=== PATIENT | male | born 1990 | race Caucasian/White ===

== ENCOUNTER 2019-11-05 16:51 | Emergency (ER) | payer SELFPAY ==
--- NOTE | 2019-11-05 18:39 | EDPHYS ---
Physician Documentation [facility] Name: David Pires Age: 29 yrs Sex: Male : 1990 Arrival Date: 11/05/2019 Time: 16:53 Bed 15 Private MD: ED Physician Celestino Umanzor HPI: 11/05 18:10 This 29 yrs old Male presents to ER via Ambulatory with complaints of Ankle snw Injury. 18:10 The patient presents with an injury, pain, that is acute. The complaints affect the snw right ankle. Onset: The symptoms/episode began/occurred suddenly, 3 day(s) ago, and became persistent. Context: [place] resulted from the patient falling, while jumping, The mechanism of injury involved axial compression of the affected ankle. The patient is unable to bear weight. can ambulate using crutches. Associated signs and symptoms: The patient has no apparent associated signs or symptoms. Severity of symptoms: At their worst the symptoms were moderate. It is unknown whether or not the patient has had similar symptoms in the past. The patient has not recently seen a physician. Historical: - Allergies: 17:07 No Known Allergies; mg2 - Home Meds: 17:07 None [Active]; mg2 - PMHx: 17:07 PCV; Hypertension; mg2 - PSHx: 17:07 Ear Tubes; mg2 - Immunization history:: Flu vaccine is not up to date. - Social history:: Smoking status: Patient reports the use of cigarette tobacco products, smokes one-half pack cigarettes per day, Patient uses alcohol, on a daily basis. smoke weed. - Ebola Screening: : No symptoms or risks identified at this time. ROS: 18:09 Constitutional: Negative for fever, chills, and weight loss, Eyes: Negative for injury, snw pain, redness, and discharge, ENT: Negative for injury, pain, and discharge, Neck: Negative for injury, pain, and swelling, Cardiovascular: Negative for chest pain, palpitations, and edema, Respiratory: Negative for shortness of breath, cough, wheezing, and pleuritic chest pain, Abdomen/GI: Negative for abdominal pain, nausea, vomiting, diarrhea, and constipation, Back: Negative for injury and pain, : Negative for injury, bleeding, discharge, and swelling, Skin: Negative for injury, rash, and discoloration, Neuro: Negative for headache, weakness, numbness, tingling, and seizure. 18:09 MS/extremity: Positive for injury or acute deformity, contusion, decreased range of motion, ecchymosis, pain, of the right foot and right ankle. Exam: 18:08 Constitutional: This is a well developed, well nourished patient who is awake, alert, snw and in no acute distress. Head/Face: Normocephalic, atraumatic. Eyes: Pupils equal round and reactive to light, extra-ocular motions intact. Lids and lashes normal. Conjunctiva and sclera are non-icteric and not injected. Cornea within normal limits. Periorbital areas with no swelling, redness, or edema. ENT: Nares patent. No nasal discharge, no septal abnormalities noted. Tympanic membranes are normal and external auditory canals are clear. Oropharynx with no redness, swelling, or masses, exudates, or evidence of obstruction, uvula midline. Mucous membranes moist. Neck: Trachea midline, no thyromegaly or masses palpated, and no cervical lymphadenopathy. Supple, full range of motion without nuchal rigidity, or vertebral point tenderness. No Meningismus. Chest/axilla: Normal chest wall appearance and motion. Nontender with no deformity. No lesions are appreciated. Cardiovascular: Regular rate and rhythm with a normal S1 and S2. No gallops, murmurs, or rubs. Normal PMI, no JVD. No pulse deficits. Respiratory: Lungs have equal breath sounds bilaterally, clear to auscultation and percussion. No rales, rhonchi or wheezes noted. No increased work of breathing, no retractions or nasal flaring. Abdomen/GI: Soft, non-tender, with normal bowel sounds. No distension or tympany. No guarding or rebound. No evidence of tenderness throughout. Back: No spinal tenderness. No costovertebral tenderness. Full range of motion. Skin: Warm, dry with normal turgor. Normal color with no rashes, no lesions, and no evidence of cellulitis. Neuro: Awake and alert, GCS 15, oriented to person, place, time, and situation. Cranial nerves II-XII grossly intact. Motor strength 5/5 in all extremities. Sensory grossly intact. Cerebellar exam normal. Normal gait. Psych: Awake, alert, with orientation to person, place and time. Behavior, mood, and affect are within normal limits. 18:08 Musculoskeletal/extremity: Extremities: grossly normal except: noted in the right lateral malleolus, right medial malleolus and dorsum of right foot: ecchymosis, pain, swelling, tenderness, ROM: limited active range of motion due to pain, Circulation is intact in all extremities. Sensation intact. Vital Signs: 17:05 Pulse 102; Resp 18; Temp 98.6; Pulse Ox 100% on R/A; Weight 90.72 kg; Height 5 ft. 9 mg2 in. (175.26 cm); 17:07 BP 130 / 96; mg2 18:32 BP 126 / 86; Pulse 99; Resp 17 S; Pulse Ox 100% ; ca1 17:05 Body Mass Index 29.53 (90.72 kg, 175.26 cm) mg2 MDM: 17:44 Patient medically screened. snw 18:41 Data reviewed: vital signs, nurses notes. Data interpreted: Pulse oximetry: on room air snw is 100 %. Interpretation: normal. Counseling: I had a detailed discussion with the patient and/or guardian regarding: the historical points, exam findings, and any diagnostic results supporting the discharge/admit diagnosis, radiology results, the need for outpatient follow up, to return to the emergency department if symptoms worsen or persist or if there are any questions or concerns that arise at home. Special discussion: I have referred the patient to see his PCP for further evaluation of high blood pressure. Based on the history and exam findings, there is no indication for further emergent testing or inpatient evaluation. I discussed with the patient/guardian the need to see the orthopedic surgeon for further evaluation of the symptoms. I discussed with the patient/guardian the need to see the primary care provider for further evaluation of the symptoms. 11/05 17:19 Order name: Foot Right 3 View XRAY; Complete Time: 18:44 snw 11/05 17:19 Order name: Lumbar Spine (3 Views) XRAY; Complete Time: 18:40 snw 11/05 17:34 Order name: Ankle Right 3 View XRAY; Complete Time: 18:44 dh3 11/05 18:34 Order name: Walking boot; Complete Time: 18:59 snw Administered Medications: No medications were administered Disposition: 11/06 07:59 Co-signature as Attending Physician, Celestino Umanzor MD I agree with the assessment and tw4 plan of care. Disposition: 11/05/19 18:38 Discharged to Home. Impression: Fall (on) (from) unspecified stairs and steps, Pain in right lower leg, Sprain of ankle. - Condition is Stable. - Discharge Instructions: Ankle Sprain, RICE for Routine Care of Injuries, Ankle Pain, Cryotherapy, Walking Boot. - Prescriptions for Diclofenac Sodium 75 mg Oral Tablet Sustained Release - take 1 tablet by ORAL route 2 times per day; 30 tablet. orphenadrine citrate 100 mg Oral Tablet Sustained Release - take 1 tablet by ORAL route 2 times per day As needed; 20 tablet. - Work release form, Medication Reconciliation Form, Thank You Letter, Antibiotic Education, Prescription Opioid Use form. - Follow up: Emergency Department; When: As needed; Reason: Worsening of condition. Follow up: Private Physician; When: 2 - 3 days; Reason: Recheck today's complaints, Continuance of care, Re-evaluation by your physician. Signatures: Dispatcher [employer] EDMS Arianne Macias, LORENA-C ORGAN TEACHER-Csnw Celestino Umanzor MD MD tw4 Sahwn Sarmiento RN RN mg2 Litzy Saez RN RN ca1 Corrections: (The following items were deleted from the chart) 11/05 18:38 18:38 11/05/2019 18:38 Discharged to Home. Impression: Fall (on) (from) unspecified snw stairs and steps; Pain in right lower leg. Condition is Stable. Forms are Medication Reconciliation Form, Thank You Letter, Antibiotic Education, Prescription Opioid Use. Follow up: Emergency Department; When: As needed; Reason: Worsening of condition. Follow up: Private Physician; When: 2 - 3 days; Reason: Recheck today's complaints, Continuance of care, Re-evaluation by your physician. snw 19:03 18:38 11/05/2019 18:38 Discharged to Home. Impression: Fall (on) (from) unspecified ca1 stairs and steps; Pain in right lower leg; Sprain of ankle. Condition is Stable. Forms are Medication Reconciliation Form, Thank You Letter, Antibiotic Education, Prescription Opioid Use. Follow up: Emergency Department; When: As needed; Reason: Worsening of condition. Follow up: Private Physician; When: 2 - 3 days; Reason: Recheck today's complaints, Continuance of care, Re-evaluation by your physician. snw
--- NOTE | 2019-11-05 18:39 | RAD REPORT ---
EXAM DESCRIPTION: RAD - Lumbar Spine 3 Views - 11/05/2019 6:16 pm CLINICAL HISTORY: Back pain FINDINGS: No fracture or dislocation seen
--- NOTE | 2019-11-05 18:39 | ER ---
Nurse's Notes [facility] Name: David Pires Age: 29 yrs Sex: Male : 1990 Arrival Date: 11/05/2019 Time: 16:53 Bed 15 Private MD: Diagnosis: Fall (on) (from) unspecified stairs and steps;Pain in right lower leg;Sprain of ankle Presentation: 11/05 17:02 Presenting complaint: Patient states: [place], i fell from mg2 top floor to the second floor like 6-8 feet high and landed on my right foot. i was drunk that time. Transition of care: patient was not received from another setting of care. Onset of symptoms was November 03, 2019. Risk Assessment: Do you want to hurt yourself or someone else? Patient reports no desire to harm self or others. Initial Sepsis Screen: Does the patient meet any 2 criteria? No. Patient's initial sepsis screen is negative. Does the patient have a suspected source of infection? No. Patient's initial sepsis screen is negative. Care prior to arrival: 17:02 Method Of Arrival: Ambulatory mg2 17:02 Acuity: GUIDO 4 mg2 Historical: - Allergies: 17:07 No Known Allergies; mg2 - Home Meds: 17:07 None [Active]; mg2 - PMHx: 17:07 PCV; Hypertension; mg2 - PSHx: 17:07 Ear Tubes; mg2 - Immunization history:: Flu vaccine is not up to date. - Social history:: Smoking status: Patient reports the use of cigarette tobacco products, smokes one-half pack cigarettes per day, Patient uses alcohol, on a daily basis. smoke weed. - Ebola Screening: : No symptoms or risks identified at this time. Screenin:38 Abuse screen: Denies threats or abuse. Denies injuries from another. Nutritional ca1 screening: No deficits noted. Tuberculosis screening: No symptoms or risk factors identified. Fall Risk Ambulatory Aid- Crutches/Cane/Walker (15 pts). Gait- Impaired (20 pts.). Assessment: 17:38 General: Appears in no apparent distress. comfortable, Behavior is calm, cooperative, ca1 appropriate for age. Pain: Complains of pain in right ankle Pain currently is 6 out of 10 on a pain scale. Pain began 2 hours ago. Aggravated by weight bearing. Neuro: Level of Consciousness is awake, alert, obeys commands, Oriented to person, place, time, situation, Appropriate for age. Derm: Skin is intact, is healthy with good turgor, Skin is pink, warm \T\ dry. Musculoskeletal: Circulation, motion, and sensation intact. Capillary refill < 3 seconds, Range of motion: limited in right ankle Swelling present in right first toe, right second toe, right third toe, right fourth toe and right fifth toe. 18:15 Reassessment: Patient appears in no apparent distress at this time. Patient is alert, ca1 oriented x 3, equal unlabored respirations, skin warm/dry/pink. 19:01 Reassessment: Patient appears in no apparent distress at this time. Patient is alert, ca1 oriented x 3, equal unlabored respirations, skin warm/dry/pink. Vital Signs: 17:05 Pulse 102; Resp 18; Temp 98.6; Pulse Ox 100% on R/A; Weight 90.72 kg; Height 5 ft. 9 mg2 in. (175.26 cm); 17:07 BP 130 / 96; mg2 18:32 BP 126 / 86; Pulse 99; Resp 17 S; Pulse Ox 100% ; ca1 17:05 Body Mass Index 29.53 (90.72 kg, 175.26 cm) mg2 ED Course: 16:53 Patient arrived in ED. ag5 17:00 Arianne Macias FNP-C is [facility]. snw 17:00 Celestino Umanzor MD is Attending Physician. snw 17:05 Triage completed. mg2 17:06 Arm band placed on. mg2 17:37 Litzy Saez, SHANTE is Primary Nurse. ca1 17:38 Patient has correct armband on for positive identification. Bed in low position. Call ca1 light in reach. Side rails up X 1. Pulse ox on. NIBP on. 17:38 No provider procedures requiring assistance completed. Patient did not have IV access ca1 during this emergency room visit. 18:16 Foot Right 3 View XRAY In Process Unspecified. EDMS 18:16 Lumbar Spine (3 Views) XRAY In Process Unspecified. EDMS 18:16 Ankle Right 3 View XRAY In Process Unspecified. EDMS Administered Medications: No medications were administered Outcome: 18:38 Discharge ordered by . snw 19:01 Discharged to home via wheelchair, with crutches, with significant other. ca1 19:01 Condition: stable 19:01 Discharge instructions given to patient, Instructed on discharge instructions, follow up and referral plans. medication usage, Demonstrated understanding of instructions, follow-up care, medications, Prescriptions given X 2. 19:03 Patient left the ED. ca1 Signatures: Dispatcher [employer] EDMS Arianne Macias, DEPUTY EDITOR IN CHIEF-C DEPUTY EDITOR IN CHIEF-Csnw Shawn Sarmiento RN RN mg2 Litzy Saez RN RN ca1 Cruz Bales ag5 Corrections: (The following items were deleted from the chart) 18:36 18:32 BP 135 / 89; Pulse 99bpm; Resp 17bpm; Spontaneous; Pulse Ox 100%; ca1 ca1
--- NOTE | 2019-11-05 18:40 | RAD REPORT ---
EXAM DESCRIPTION: RAD - Ankle Right 3 View - 11/05/2019 6:16 pm CLINICAL HISTORY: Right ankle pain status post fall FINDINGS: No fracture or dislocation is seen. Soft tissue swelling
--- NOTE | 2019-11-05 18:41 | RAD REPORT ---
EXAM DESCRIPTION: RAD - Foot Right 3 View - 11/05/2019 6:15 pm CLINICAL HISTORY: Right foot pain status post injury FINDINGS: No fracture or dislocation is seen
[2019-11-05 21:44] VITALS: TEMP 98.6; O2SAT 100
[2019-11-05 21:46] VITALS: BP 126/86
== END 2019-11-05 19:03 | disposition home or self-care (01) ==
LOC: ER 16:51
DX: S93.401A Sprain of unspecified ligament of right ankle, initial encounter (principal); W19.XXXA Unspecified fall, initial encounter; Y93.89 Activity, other specified; Y92.832 Beach as the place of occurrence of the external cause; I10 Essential (primary) hypertension; F17.210 Nicotine dependence, cigarettes, uncomplicated
CPT/HCPCS: 72100; 99283

== ENCOUNTER 2020-09-13 00:58 | Emergency (ER) | payer SELFPAY ==
[2020-09-13] MEDS ORDERED: LIDOCAINE 1% W/EPI 1:100,000 MDV 50 ML VIAL ONE (01:42)
[2020-09-13] MEDS ORDERED: CEPHALEXIN 250 MG CAP ONE (01:46)
--- NOTE | 2020-09-13 02:21 | ER ---
Nurse's Notes [facility] Name: David Pires Age: 30 yrs Sex: Male : 1990 Arrival Date: 09/13/2020 Time: 01: Bed 8 Private MD: Diagnosis: Hematoma of pinna, right ear-incised Presentation: 09/13 01:08 Chief complaint: Patient states: Swelling and pain to the ear, states unsure if any sg fever, reports ear feels hot, denies N/V/D at this time. Coronavirus screen: Client denies travel out of the [place] in the last 14 days. At this time, the client does not indicate any symptoms associated with coronavirus-19. Ebola Screen: Patient negative for fever greater than or equal to 101.5 degrees Fahrenheit, and additional compatible Ebola Virus Disease symptoms Patient denies exposure to infectious person. Patient denies travel to an Ebola-affected area in the 21 days before illness onset. No symptoms or risks identified at this time. Initial Sepsis Screen: Does the patient meet any 2 criteria? No. Patient's initial sepsis screen is negative. Does the patient have a suspected source of infection? Yes: Skin breakdown/wound. Risk Assessment: Do you want to hurt yourself or someone else? Patient reports no desire to harm self or others. Onset of symptoms was September 13, 2020. Care prior to arrival: None. Transition of care: patient was not received from another setting of care. 01:08 Acuity: GUIDO 4 sg 01:08 Method Of Arrival: Ambulatory sg Historical: - Allergies: 01:08 No Known Allergies; sg - PMHx: 01:08 Hypertension; PCV; sg - PSHx: 01:08 Ear Tubes; sg - Immunization history:: Adult Immunizations up to date. - Social history:: Smoking status: . - Family history:: not pertinent. Screenin:15 Abuse screen: Denies injuries from another. Nutritional screening: No deficits noted. jb4 Tuberculosis screening: No symptoms or risk factors identified. Fall Risk None identified. Assessment: 01:15 General: Appears in no apparent distress. comfortable, Behavior is calm, cooperative, jb4 appropriate for age. Pain: Complains of pain in right ear Pain does not radiate. Pain currently is 0 out of 10 on a pain scale. Neuro: Level of Consciousness is awake, alert, obeys commands, Oriented to person, place, time, situation. Cardiovascular: Patient's skin is warm and dry. Respiratory: Airway is patent Respiratory effort is even, unlabored, Respiratory pattern is regular, symmetrical. GI: No signs and/or symptoms were reported involving the gastrointestinal system. : No signs and/or symptoms were reported regarding the genitourinary system. EENT: Pinna w/ deformity noted on pinna of right ear. Derm: Skin is intact, Skin is pink, warm \T\ dry. Musculoskeletal: No signs and/or symptoms reported regarding the musculoskeletal system. 02:30 Reassessment: Patient appears in no apparent distress at this time. Patient and/or jb4 family updated on plan of care and expected duration. Pain level reassessed. Patient is alert, oriented x 3, equal unlabored respirations, skin warm/dry/pink. Vital Signs: 01:08 BP 136 / 77; Pulse 82; Resp 18; Pulse Ox 100% on R/A; sg 02:30 BP 122 / 84; Pulse 78; Resp 16; Temp 97.2(TE); Pulse Ox 99% on R/A; Pain 0/10; jb4 ED Course: 01:01 Patient arrived in ED. cf2 01:07 David Carbajal MD is Attending Physician. alonso 01:08 Arm band placed on. sg 01:10 Triage completed. sg 01:12 Pepe Heredia, RN is Primary Nurse. jb4 01:15 Patient has correct armband on for positive identification. Bed in low position. Call jb4 light in reach. Side rails up X 1. Pulse ox on. NIBP on. 02:00 Assist provider with I \T\ D: of an abscess on right Ear Set up I\T\D tray. Performed by ulises 4 David Carbajal MD Dressing with Vasoline Gauze. 02:20 Smita Chase MD is Referral Physician. alonso 03:08 Patient did not have IV access during this emergency room visit. jb4 Administered Medications: 01:53 Drug: KeFLEX 500 mg Route: PO; jb4 03:07 Follow up: Response: No adverse reaction jb4 02:00 Drug: Lidocaine-Epinephrine -1%: (1:100,000) 2 ml {Note: Administered by Dr. Carbajal.} jb4 Volume: 20 ml; Route: Infiltration; 02:15 Drug: Bactroban Ointment 2 % 1 application {Note: Administered by Dr. Carbajal.} Route: jb4 Topical; Site: affected area; 02:37 Drug: Tetanus-Diphtheria Toxoid Adult 0.5 ml {Drafter Structural: [employer]akoo. Exp: jb4 12/28/2021. Lot #: [id number]. } Route: IM; Site: right deltoid; 03:07 Follow up: Response: No adverse reaction jb4 02:37 Drug: Bactrim (160 mg-800 mg (DS) 1 tablet Route: PO; jb4 03:07 Follow up: Response: No adverse reaction jb4 Outcome: 02:20 Discharge ordered by . alonso 03:07 Discharged to home ambulatory, with significant other. jb4 03:07 Condition: stable 03:07 Discharge instructions given to patient, Instructed on discharge instructions, follow up and referral plans. medication usage, Demonstrated understanding of instructions, follow-up care, medications, Prescriptions given X 2. 03:08 Patient left the ED. sg Signatures: Brayden Gonzales RN David Eisenberg MD MD cha Bryson, James RN RN jb4 Viviana Stokes cf2 Corrections: (The following items were deleted from the chart) 03:08 02:20 Assist provider with I \T\ D: of an abscess on right Ear Set up I\T\D tray. Performed ulises 4 by David Carbajal MD Dressing with Vasoline Gauze jb4 03:08 02:20 Patient did not have IV access during this emergency room visit. jb4 jb4
--- NOTE | 2020-09-13 02:21 | EDPHYS ---
Physician Documentation [facility] Name: David Pires Age: 30 yrs Sex: Male : 1990 Arrival Date: 09/13/2020 Time: : Bed 8 Private MD: David Bingham HPI: 09/13 01:26 This 30 yrs old Male presents to ER via Ambulatory with complaints of Ear alonso Pain, SWELLING TO EAR. 01:26 The patient presents with pain, swelling, tenderness. The complaints affect the right alonso ear. Onset: The symptoms/episode began/occurred 3 day(s) ago. Onset: The symptoms/episode began/occurred 3 day(s) ago. Modifying factors: The symptoms are alleviated by nothing, the symptoms are aggravated by nothing. Associated signs and symptoms: The patient has no apparent associated signs or symptoms. Severity of symptoms: At their worst the symptoms were. The patient has not experienced similar symptoms in the past. Historical: - Allergies: 01:08 No Known Allergies; sg - PMHx: 01:08 Hypertension; PCV; sg - PSHx: 01:08 Ear Tubes; sg - Immunization history:: Adult Immunizations up to date. - Social history:: Smoking status: . - Family history:: not pertinent. ROS: 01:26 Constitutional: Negative for fever, chills, and weight loss, Eyes: Negative for injury, alonso pain, redness, and discharge, Neck: Negative for injury, pain, and swelling, Cardiovascular: Negative for chest pain, palpitations, and edema, Respiratory: Negative for shortness of breath, cough, wheezing, and pleuritic chest pain, Abdomen/GI: Negative for abdominal pain, nausea, vomiting, diarrhea, and constipation, Back: Negative for injury and pain, : Negative for injury, bleeding, discharge, and swelling, MS/Extremity: Negative for injury and deformity, Skin: Negative for injury, rash, and discoloration, Neuro: Negative for headache, weakness, numbness, tingling, and seizure, Psych: Negative for depression, anxiety, suicide ideation, homicidal ideation, and hallucinations, Allergy/Immunology: Negative for hives, rash, and allergies, Endocrine: Negative for neck swelling, polydipsia, polyuria, polyphagia, and marked weight changes, Hematologic/Lymphatic: Negative for swollen nodes, abnormal bleeding, and unusual bruising. 01:26 ENT: Positive for ear pain, injury or acute deformity, abrasion. Exam: 01:26 Constitutional: This is a well developed, well nourished patient who is awake, alert, alonso and in no acute distress. Head/Face: Normocephalic, atraumatic. Eyes: Pupils equal round and reactive to light, extra-ocular motions intact. Lids and lashes normal. Conjunctiva and sclera are non-icteric and not injected. Cornea within normal limits. Periorbital areas with no swelling, redness, or edema. Neck: Trachea midline, no thyromegaly or masses palpated, and no cervical lymphadenopathy. Supple, full range of motion without nuchal rigidity, or vertebral point tenderness. No Meningismus. Chest/axilla: Normal chest wall appearance and motion. Nontender with no deformity. No lesions are appreciated. Cardiovascular: Regular rate and rhythm with a normal S1 and S2. No gallops, murmurs, or rubs. Normal PMI, no JVD. No pulse deficits. Respiratory: Lungs have equal breath sounds bilaterally, clear to auscultation and percussion. No rales, rhonchi or wheezes noted. No increased work of breathing, no retractions or nasal flaring. Abdomen/GI: Soft, non-tender, with normal bowel sounds. No distension or tympany. No guarding or rebound. No evidence of tenderness throughout. Back: No spinal tenderness. No costovertebral tenderness. Full range of motion. Male : Normal genitalia with no discharge or lesions. Skin: Warm, dry with normal turgor. Normal color with no rashes, no lesions, and no evidence of cellulitis. MS/ Extremity: Pulses equal, no cyanosis. Neurovascular intact. Full, normal range of motion. Neuro: Awake and alert, GCS 15, oriented to person, place, time, and situation. Cranial nerves II-XII grossly intact. Motor strength 5/5 in all extremities. Sensory grossly intact. Cerebellar exam normal. Normal gait. Psych: Awake, alert, with orientation to person, place and time. Behavior, mood, and affect are within normal limits. 01:26 ENT: External ear(s): swelling, that is moderate, of the pinna of right ear. Vital Signs: 01:08 BP 136 / 77; Pulse 82; Resp 18; Pulse Ox 100% on R/A; sg 02:30 BP 122 / 84; Pulse 78; Resp 16; Temp 97.2(TE); Pulse Ox 99% on R/A; Pain 0/10; jb4 Procedures: 01:26 I \T\ D: Incision and drainage was performed for an abscess of the right pinna of right alonso ear and right ear. MDM: 01:07 Patient medically screened. [facility] :26 Data reviewed: vital signs, nurses notes. Data interpreted: shelter monitor: not alonso applicable for this patient encounter. rate is 60 beats/min, rhythm is regular. Test interpretation: by ED physician or midlevel provider:. Counseling: I had a detailed discussion with the patient and/or guardian regarding: the historical points, exam findings, and any diagnostic results supporting the discharge/admit diagnosis, the need for outpatient follow up, for definitive care, an ENT specialist. 09/13 01:26 Order name: Dressing - Wound; Complete Time: 02: [facility] 09/13 01:26 Order name: Gloves, Sterile; Complete Time: 02: [facility] 09/13 01:26 Order name: Setup Suture Tray; Complete Time: 02: [facility] Administered Medications: 01:53 Drug: KeFLEX 500 mg Route: PO; jb4 03:07 Follow up: Response: No adverse reaction 4 02:00 Drug: Lidocaine-Epinephrine -1%: (1:100,000) 2 ml {Note: Administered by Dr. Carbaajl.} jb4 Volume: 20 ml; Route: Infiltration; 02:15 Drug: Bactroban Ointment 2 % 1 application {Note: Administered by Dr. Carbajal.} Route: jb4 Topical; Site: affected area; 02:37 Drug: Tetanus-Diphtheria Toxoid Adult 0.5 ml {Roving Changer: [employer]. Exp: jb4 12/28/2021. Lot #: [id number]. } Route: IM; Site: right deltoid; 03:07 Follow up: Response: No adverse reaction jb4 02:37 Drug: Bactrim (160 mg-800 mg (DS) 1 tablet Route: PO; jb4 03:07 Follow up: Response: No adverse reaction jb4 Disposition: 09/13/20 02:20 Discharged to Home. Impression: Hematoma of pinna, right ear - incised. - Condition is Stable. - Discharge Instructions: Hematoma, Hematoma, [id number], Incision and Drainage, Incision Care, Adult. - Prescriptions for Keflex 500 mg Oral Capsule - take 1 capsule by ORAL route every 6 hours for 10 days; 40 capsule. Bactrim DS 800- 160 mg Oral Tablet - take 1 tablet by ORAL route every 12 hours for 7 days; 14 tablet. - Medication Reconciliation Form, Thank You Letter, Antibiotic Education, Prescription Opioid Use form. - Follow up: Private Physician; When: 2 - 3 days; Reason: Recheck today's complaints, Continuance of care, Re-evaluation by your physician. Follow up: Smita Chase; When: 2 - 3 days; Reason: Recheck today's complaints, Continuance of care, Re-evaluation by your physician. - Problem is new. - Symptoms have improved. Signatures: Brayden Gonzales, RN David Eisenberg MD MD cha Bryson, James, RN RN jb4 Corrections: (The following items were deleted from the chart) 03:08 02:20 09/13/2020 02:20 Discharged to Home. Impression: Hematoma of pinna, right ear - sg incised. Condition is Stable. Discharge Instructions: Hematoma, Hematoma, [id number]. Prescriptions for Keflex 500 mg Oral Capsule - take 1 capsule by ORAL route every 6 hours for 10 days; 40 capsule. and Forms are Medication Reconciliation Form, Thank You Letter, Antibiotic Education, Prescription Opioid Use. Follow up: Private Physician; When: 2 - 3 days; Reason: Recheck today's complaints, Continuance of care, Re-evaluation by your physician. Follow up: Smita Chase; When: 2 - 3 days; Reason: Recheck today's complaints, Continuance of care, Re-evaluation by your physician. Problem is new. Symptoms have improved. alonso
[2020-09-13] MEDS ORDERED: MUPIROCIN 2% OINT 22GM TUBE TOP ONE (02:27)
[2020-09-13] MEDS ORDERED: SMZ./TMP. 800/160 MG TABLET ONE (02:45)
[2020-09-13] MEDS ORDERED: TETANUS & DIPHTHERIA TOX,ADULT 0.5 ML VIAL ONE (02:45)
[2020-09-13 07:37] VITALS: BP 122/84; TEMP 97.2; O2SAT 99
== END 2020-09-13 03:08 | disposition home or self-care (01) ==
LOC: ER 00:58
PROC: 0H92XZZ Drainage of Right Ear Skin, External Approach (ICD-10-PCS; principal; 2020-09-13)
DX: S00.431A Contusion of right ear, initial encounter (principal); I10 Essential (primary) hypertension
CPT/HCPCS: 90471; 90714; 99284

== ENCOUNTER 2021-09-27 00:07 | Emergency (ER) | payer SELFPAY ==
[2021-09-27] MEDS ORDERED: FAMOTIDINE 20 MG TAB ONE (00:53)
[2021-09-27] MEDS ORDERED: predniSONE 20 MG TAB ONE (00:53)
[2021-09-27] MEDS ORDERED: DIPHENHYDRAMINE 25 MG TAB/CAP ONE (00:53)
--- NOTE | 2021-09-27 00:53 | ER ---
Nurse's Notes [facility] Name: David Pires Age: 31 yrs Sex: Male : 1990 Arrival Date: 09/27/2021 Time: 00:10 Bed 5 Private MD: Diagnosis: Irritant contact dermatitis due to plants, except food Presentation: 09/27 00:25 Chief complaint: Patient states: Has been cutting trees down x 3 days, contact with lp1 poison bhakti, reports itching to general body, significant to bilateral arms and abdomen. Coronavirus screen: At this time, the client does not indicate any symptoms associated with coronavirus-19. Ebola Screen: No symptoms or risks identified at this time. Onset: The symptoms/episode began/occurred gradually. Anaphylaxis evaluation, the patient reports or I have noted the following symptoms which indicate a significant risk of anaphylaxis:. Initial Sepsis Screen: Does the patient meet any 2 criteria? No. Patient's initial sepsis screen is negative. Does the patient have a suspected source of infection? No. Patient's initial sepsis screen is negative. Risk Assessment: Do you want to hurt yourself or someone else? Patient reports no desire to harm self or others. Onset of symptoms was September 27, 2021. 00:25 Method Of Arrival: Ambulatory lp1 00:25 Acuity: GUIDO 4 lp1 Historical: - Allergies: 00:27 No Known Allergies; lp1 - Home Meds: 00:27 None [Active]; lp1 - PMHx: 00:27 Hypertension; PCV; lp1 - PSHx: 00:27 None; lp1 - Immunization history:: Adult Immunizations up to date. - Social history:: Smoking status: Patient reports the use of cigarette tobacco products, smokes one-half pack cigarettes per day. - Family history:: not pertinent. Screenin:27 Abuse screen: Denies threats or abuse. Denies injuries from another. Nutritional lp1 screening: No deficits noted. Tuberculosis screening: No symptoms or risk factors identified. Fall Risk None identified. Assessment: 00:27 General: Appears in no apparent distress. Behavior is calm, cooperative. Pain: Denies lp1 pain. Neuro: Level of Consciousness is awake, alert, obeys commands. Cardiovascular: Patient's skin is warm and dry. Respiratory: Airway is patent Respiratory effort is even, unlabored. GI: No signs and/or symptoms were reported involving the gastrointestinal system. : No signs and/or symptoms were reported regarding the genitourinary system. EENT: No signs and/or symptoms were reported regarding the EENT system. Derm: Rash noted that is itchy, red, raised, urticaria, on abdomen, right arm and left arm. Musculoskeletal: No deficits noted. Vital Signs: 00:23 BP 128 / 75; Pulse 78; Resp 16; Temp 98.0; Pulse Ox 100% ; lt3 00:25 Weight 97.52 kg (R); Height 5 ft. 9 in. (175.26 cm); lp1 00:25 Body Mass Index 31.75 (97.52 kg, 175.26 cm) lp1 ED Course: 00:10 Patient arrived in ED. as 00:21 David Carbajal MD is Attending Physician. alonso 00:25 Lizbeth Grant, SHANTE is Primary Nurse. lp1 00:27 Triage completed. lp1 00:27 Arm band placed on. lp1 00:27 Patient has correct armband on for positive identification. lp1 00:52 Barb Rodriguez MD is Referral Physician. alonso 00:59 No provider procedures requiring assistance completed. Patient did not have IV access lp1 during this emergency room visit. Administered Medications: 00:58 Drug: Benadryl (diphenhydrAMINE) 50 mg Route: PO; lp1 00:59 Follow up: Response: Medication administered at discharge. lp1 00:59 Drug: Pepcid (famotidine) 40 mg Route: PO; lp1 00:59 Follow up: Response: Medication administered at discharge. lp1 00:59 Drug: predniSONE 60 mg Route: PO; lp1 00:59 Follow up: Response: Medication administered at discharge. lp1 Outcome: 00:52 Discharge ordered by . alonso 00:59 Discharged to home ambulatory. lp1 00:59 Condition: good 00:59 Discharge instructions given to patient, Instructed on discharge instructions, follow up and referral plans. medication usage, Demonstrated understanding of instructions, follow-up care, medications, Prescriptions given X 3. 00:59 Patient left the ED. lp1 Signatures: David Carbajal MD MD cha Martinez, Amelia as Lizbeth Grant, RN RN 1 Kylie White 3
--- NOTE | 2021-09-27 00:53 | EDPHYS ---
Physician Documentation [facility] Name: David Pires Age: 31 yrs Sex: Male : 1990 Arrival Date: 09/27/2021 Time: 00:10 Bed 5 Private MD: ANSELMO Physician David Carbajal HPI: 09/27 00:45 This 31 yrs old Male presents to ER via Ambulatory with complaints of Rash, Allergic alonso Reaction. 00:45 The patient's rash thought to be caused by Contact allergy. The rash is located on the alonso body diffusely. The rash can be described as erythematous. Onset: The symptoms/episode began/occurred 2 day(s) ago. Associated signs and symptoms: Pertinent positives: burning sensation, itching. Severity of symptoms: At their worst the symptoms were moderate in the emergency department the symptoms have resolved. Treatment given at home: Benadryl. The patient has experienced similar episodes in the past, a few times. Historical: - Allergies: 00:27 No Known Allergies; lp1 - Home Meds: 00:27 None [Active]; lp1 - PMHx: 00:27 Hypertension; PCV; lp1 - PSHx: 00:27 None; lp1 - Immunization history:: Adult Immunizations up to date. - Social history:: Smoking status: Patient reports the use of cigarette tobacco products, smokes one-half pack cigarettes per day. - Family history:: not pertinent. ROS: 00:45 Constitutional: Negative for fever, chills, and weight loss, Eyes: Negative for injury, alonso pain, redness, and discharge, ENT: Negative for injury, pain, and discharge, Neck: Negative for injury, pain, and swelling, Cardiovascular: Negative for chest pain, palpitations, and edema, Respiratory: Negative for shortness of breath, cough, wheezing, and pleuritic chest pain, Abdomen/GI: Negative for abdominal pain, nausea, vomiting, diarrhea, and constipation, Back: Negative for injury and pain, : Negative for injury, bleeding, discharge, and swelling, MS/Extremity: Negative for injury and deformity, Neuro: Negative for headache, weakness, numbness, tingling, and seizure, Psych: Negative for depression, anxiety, suicide ideation, homicidal ideation, and hallucinations, Allergy/Immunology: Negative for hives, rash, and allergies, Endocrine: Negative for neck swelling, polydipsia, polyuria, polyphagia, and marked weight changes, Hematologic/Lymphatic: Negative for swollen nodes, abnormal bleeding, and unusual bruising. 00:45 Skin: Positive for rash, diffusely. Exam: 00:45 Constitutional: This is a well developed, well nourished patient who is awake, alert, alonso and in no acute distress. Head/Face: Normocephalic, atraumatic. Eyes: Pupils equal round and reactive to light, extra-ocular motions intact. Lids and lashes normal. Conjunctiva and sclera are non-icteric and not injected. Cornea within normal limits. Periorbital areas with no swelling, redness, or edema. ENT: Nares patent. No nasal discharge, no septal abnormalities noted. Tympanic membranes are normal and external auditory canals are clear. Oropharynx with no redness, swelling, or masses, exudates, or evidence of obstruction, uvula midline. Mucous membranes moist. Neck: Trachea midline, no thyromegaly or masses palpated, and no cervical lymphadenopathy. Supple, full range of motion without nuchal rigidity, or vertebral point tenderness. No Meningismus. Chest/axilla: Normal chest wall appearance and motion. Nontender with no deformity. No lesions are appreciated. Cardiovascular: Regular rate and rhythm with a normal S1 and S2. No gallops, murmurs, or rubs. Normal PMI, no JVD. No pulse deficits. Respiratory: Lungs have equal breath sounds bilaterally, clear to auscultation and percussion. No rales, rhonchi or wheezes noted. No increased work of breathing, no retractions or nasal flaring. Abdomen/GI: Soft, non-tender, with normal bowel sounds. No distension or tympany. No guarding or rebound. No evidence of tenderness throughout. Back: No spinal tenderness. No costovertebral tenderness. Full range of motion. Male : Normal genitalia with no discharge or lesions. MS/ Extremity: Pulses equal, no cyanosis. Neurovascular intact. Full, normal range of motion. Neuro: Awake and alert, GCS 15, oriented to person, place, time, and situation. Cranial nerves II-XII grossly intact. Motor strength 5/5 in all extremities. Sensory grossly intact. Cerebellar exam normal. Normal gait. Psych: Awake, alert, with orientation to person, place and time. Behavior, mood, and affect are within normal limits. 00:45 Skin: Appearance: Color: pink, Temperature: normal temperature, Moisture: normal moisture, petechiae, not noted, ecchymosis, not noted, flushing, not noted, diaphoresis is not appreciated, contact dermatitis. Vital Signs: 00:23 BP 128 / 75; Pulse 78; Resp 16; Temp 98.0; Pulse Ox 100% ; lt3 00:25 Weight 97.52 kg (R); Height 5 ft. 9 in. (175.26 cm); lp1 00:25 Body Mass Index 31.75 (97.52 kg, 175.26 cm) lp1 MDM: 00:21 Patient medically screened. alonso 00:50 Differential diagnosis: allergic reaction. Data reviewed: vital signs, nurses notes. [facility] Data interpreted: court recording monitor: not applicable for this patient encounter. rate is 78 beats/min, rhythm is regular, Pulse oximetry: on room air is 100 %. Counseling: I had a detailed discussion with the patient and/or guardian regarding: the historical points, exam findings, and any diagnostic results supporting the discharge/admit diagnosis, radiology results, the need for outpatient follow up, for definitive care, a family practitioner. Administered Medications: 00:58 Drug: Benadryl (diphenhydrAMINE) 50 mg Route: PO; lp1 00:59 Follow up: Response: Medication administered at discharge. lp1 00:59 Drug: Pepcid (famotidine) 40 mg Route: PO; lp1 00:59 Follow up: Response: Medication administered at discharge. lp1 00:59 Drug: predniSONE 60 mg Route: PO; lp1 00:59 Follow up: Response: Medication administered at discharge. lp1 Disposition Summary: 09/27/21 00:52 Discharge Ordered Location: Home alonso Problem: new alonso Symptoms: have improved alonso Condition: Stable alonso Diagnosis - Irritant contact dermatitis due to plants, except food alonso Followup: alonso - With: Private Physician - When: 2 - 3 days - Reason: Recheck today's complaints, Continuance of care, Re-evaluation by your physician Followup: alonso - With: Barb Rodriguez MD - When: As needed - Reason: Recheck today's complaints, Re-evaluation by your physician Discharge Instructions: - Discharge Summary Sheet alonso - Contact Dermatitis alonso - Poison [place] Dermatitis alonso - Poison [place] Dermatitis alonso - Rash, Adult alonso - Rash, Adult, [id number] [facility] Forms: - Medication Reconciliation Form alonso - Thank You Letter alonso - Antibiotic Education alonso - Prescription Opioid Use [facility] Prescriptions: - Benadryl 25 mg Oral Capsule - take 2 capsule by ORAL route every 6 hours As needed; 40 tablet; Refills: 0, [facility] Product Selection Permitted - Pepcid 20 mg Oral Tablet - take 1 tablet by ORAL route every 12 hours for 10 days; 20 tablet; Refills: 0, [facility] Product Selection Permitted - Prednisone 20 mg Oral Tablet - take 2 tablets by ORAL route once daily for 5 days; 10 tablet; Refills: 0, [facility] Product Selection Permitted Signatures: Dvaid Carbajal MD MD cha Pena, Laura RN RN lp1
[2021-09-27 01:05] VITALS: BP 128/75; TEMP 98; O2SAT 100
== END 2021-09-27 00:59 | disposition home or self-care (01) ==
LOC: ER 00:07
DX: L24.7 Irritant contact dermatitis due to plants, except food (principal); I10 Essential (primary) hypertension; F17.210 Nicotine dependence, cigarettes, uncomplicated
CPT/HCPCS: 99283; J7512